=== PATIENT | male | born 1965 | race Caucasian/White ===

== ENCOUNTER 2018-09-12 21:23 | Emergency (ER) | payer BC, OTHER ==
[2018-09-12 21:44] VITALS: BP 133/84; PULSE 68; TEMP 97.8; BMI 23.1
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
== END 2018-09-12 21:57 | disposition home or self-care (01) ==
LOC: FER 21:23
PROC: 0HQ1XZZ Repair Face Skin, External Approach (ICD-10-PCS; principal; 2018-09-12)
DX: S01.81XA Laceration without foreign body of other part of head, initial encounter (principal); W22.8XXA Striking against or struck by other objects, initial encounter; Y93.89 Activity, other specified; Y92.89 Other specified places as the place of occurrence of the external cause
CPT/HCPCS: 99282-25